=== PATIENT | female | born 1985 | race Two or more races ===

== ENCOUNTER 2018-03-20 15:42 | Emergency (ER) | payer MEDICAID, OTHER ==
[~2018-03-20] VITALS: Ht 165.1 cm; Wt 63.5 kg
[2018-03-20 15:50] VITALS: BP 129/90
[2018-03-20] MEDS ORDERED: KETOROLAC TROMETH 60MG/2ML VIAL IM ONE (16:15)
== END 2018-03-20 17:11 | disposition home or self-care (01) ==
LOC: ER 16:01
DX: S39.012A Strain of muscle, fascia and tendon of lower back, initial encounter (principal); X50.0XXA Overexertion from strenuous movement or load, initial encounter; Y93.89 Activity, other specified; Y92.89 Other specified places as the place of occurrence of the external cause; Y99.8 Other external cause status
CPT/HCPCS: 72100; 96372; 99284; J1885